=== PATIENT | male | born 1990 | race Caucasian/White ===

== ENCOUNTER → 2019-12-13 | Outpatient (CLI) | payer BC ==
--- NOTE | 2019-12-13 11:48 | CT ---
EXAMINATION TYPE: CT brain wo/w con DATE OF EXAM: 12/13/2019 COMPARISON: CT brain 05/10/2011 HISTORY: vertigo post ear infection CT DLP: 1590.3 mGycm Automated Exposure Control for Dose Reduction was Utilized. TECHNIQUE: CT scan of the head is performed with IV contrast.,CT scan of the head is performed withou t and with without and with IV Contrast, patient injected with 100 mL of Isovue 300. CLINICAL HISTORY: Vertigo, headache and dizziness COMPARISON: None. FINDINGS: Noncontrast images show no acute intracranial hemorrhage or midline shift. The ventricles and sulci are within normal limits in size. Postcontrast images show no suspicious enhancing intrapa renchymal mass. The globes are intact and the visualized sinuses are remarkable for inflammatory alexis ge in the ethmoid air cells, sphenoid sinus, frontal sinus. IMPRESSION: Negative contrast enhanced head CT exam. Sinus disease.
== END | disposition home or self-care (01) ==
LOC: RADCTMAIN 10:29
PROVIDERS: ATTEND Family Medicine
DX: R42 Dizziness and giddiness (principal); R51 Headache
CPT/HCPCS: 70470; Q9967